=== PATIENT | female | born 1950 | race Caucasian/White ===

== ENCOUNTER 2017-01-26 14:53 | Outpatient (CLI) | payer MEDICARE ==
--- NOTE | 2017-01-30 08:30 | DEXA Report ---
DEXA SCAN: 01/26/2017 CLINICAL INDICATION: Osteoporosis, postmenopausal. TECHNIQUE: Dual energy x-ray absorptiometry (DXA) was performed on a [employer] system. Regions measured are the AP spine, femoral neck, and, if needed, forearm. COMPARISON: None. In accordance with the International Society for Clinical Densitometry (ISCD) guidelines, data from previous exams may be reanalyzed using current recommendations and techniques. This is done to allow a more accurate basis for comparison with the current study. FINDINGS: The data for the lumbar spine is as follows: REGION BMD (g/cm/cm) T-SCORE Z-SCORE L1 1.092 -0.3 1.5 L2 0.896 -2.5 -0.7 L3 1.076 -1.0 0.8 L4 0.949 -2.1 -0.2 TOTAL 1.007 -1.4 0.4 NOTE: All evaluable vertebrae are used for classification. The data for the hip is as follows: REGION BMD (g/cm/cm) T-SCORE Z-SCORE Neck 0.700 -2.4 -0.7 TOTAL 0.789 -1.7 -0.3 NOTE: The femoral neck or total proximal femur, whichever is lowest, is used for classification. IMPRESSION: THE WHO CLASSIFICATION BASED ON THE INTERNATIONAL REFERENCE STANDARD IS OSTEOPENIA. THE FRACTURE RISK IS INCREASED. RECOMMENDATION: Patients with diagnosis of osteoporosis or osteopenia should have regular bone mineral density assessment. For those eligible for Medicare, routine testing is allowed once every 2 years. Testing frequency can be increased for patients who have rapidly progressing disease or for those who are receiving medical therapy to restore bone mass. COMMENT: World Health Organization (WHO) definitions for osteoporosis and osteopenia: NORMAL BMD: T-score at -1.0 or higher, fracture risk is low. OSTEOPENIA BMD: T-score between -1.0 and -2.5, fracture risk is increased. OSTEOPOROSIS BMD: T-score at -2.5 or lower, fracture risk high. National Osteoporosis Foundation recommends: 1. Obtain adequate dietary calcium (at least 1200 mg per day) and vitamin D (400 -800 international units per day). 2. Participate, as appropriate, in regular weightbearing and muscle- strengthening exercise. 3. Avoid tobacco use and reduce alcohol and caffeine intake. 4. For more detailed information see the website at www.NOF.org. MTDD
== END 2017-01-26 14:54 | disposition home or self-care (01) ==
LOC: DI 14:53
PROVIDERS: ATTEND Nurse Practitioner Family
DX: M85.89 Other specified disorders of bone density and structure, multiple sites (principal)
CPT/HCPCS: 77080

== ENCOUNTER 2017-01-26 14:54 | Outpatient (CLI) | payer MEDICARE ==
--- NOTE | 2017-01-27 16:29 | Mammography Report ---
DIGITAL SCREENING RIGHT MAMMOGRAM: 01/26/2017 CLINICAL INDICATION: A 66-year-old with personal history of left breast cancer, status post mastectom y. TECHNIQUE: Right CC and MLO views were obtained. COMPARISON: 12/2015, 05/2015, 09/2014, 02/2014, 05/2012, 12/2010, 12/2009, 11/2008, 11/2007. FINDINGS: The right breast again demonstrates scattered fibroglandular densities. Coarse, typically benign calcifications are present. No suspicious masses, clustered microcalcifications, or regions of architectural distortion are identified. IMPRESSION: BENIGN FINDINGS. RECOMMENDATION: ROUTINE ANNUAL SCREENING UNLESS OTHERWISE CLINICALLY INDICATED. BIRADS CATEGORY 2-BENIGN FINDINGS. STANDARD QUALIFYING STATEMENTS 1. This examination was reviewed with the aid of Computer-Aided Detection (CAD). 2. A negative or benign imaging report should not delay biopsy if clinically suspicious findings are present. Consider surgical consultation if warranted. More than 5% of cancers are not identified by i maging. 3. Dense breasts may obscure an underlying neoplasm. JOB #: [id number] EXT JOB #:
== END 2017-01-26 14:55 | disposition home or self-care (01) ==
LOC: DI 14:54
PROVIDERS: ATTEND Nurse Practitioner Family
DX: Z85.3 Personal history of malignant neoplasm of breast (principal); Z90.12 Acquired absence of left breast and nipple

== ENCOUNTER 2017-02-21 10:11 | Outpatient (CLI) | payer MEDICARE ==
[2017-02-21 18:14] LABS: BUN - BLOOD UREA NITROGEN 13 mg/dL (6-20); CALCIUM 9.3 mg/dL (8.5-10.3); CARBON DIOXIDE - CO2 29 mmol/L (21-32); CHLORIDE 101 mmol/L (101-111); CHOL/HDL RATIO 5.2 (<4.4); CHOLESTEROL 245 mg/dL; CREATININE 0.5 mg/dL (0.4-1.0); GFR - MDRD 123 (>89); GLUCOSE 98 mg/dL (70-100); HDL CHOLESTEROL 47 mg/dL; LDL/HDL RATIO 2.9 (<4.4); SODIUM 139 mmol/L (135-145); TRIGLYCERIDES 298 mg/dL; VLDL CHOLESTEROL 60 mg/dL
== END 2017-02-21 10:12 | disposition home or self-care (01) ==
LOC: LAB.F 10:11
PROVIDERS: ATTEND Nurse Practitioner Family
DX: Z13.1 Encounter for screening for diabetes mellitus (principal)
CPT/HCPCS: 36415; 80048; 80061

== ENCOUNTER 2017-05-11 10:26 | Outpatient (CLI) | payer MEDICARE ==
[2017-05-11 17:45] LABS: BILIRUBIN,TOTAL 0.5 mg/dL (0.2-1.0); TOTAL PROTEIN 7.4 g/dL (6.7-8.2)
[2017-05-11 17:56] LABS: BILIRUBIN,DIRECT < 0.1 mg/dL (0.1-0.5)
== END 2017-05-11 10:27 | disposition home or self-care (01) ==
LOC: LAB.F 10:26
PROVIDERS: ATTEND Nurse Practitioner Family
DX: E78.5 Hyperlipidemia, unspecified (principal)
CPT/HCPCS: 36415; 80076

== ENCOUNTER 2017-08-15 10:31 | Outpatient (CLI) | payer MEDICARE ==
[2017-08-15 18:13] LABS: ALBUMIN 4.5 g/dL (3.2-5.5); ALKALINE PHOSPHATASE 63 IU/L (42-121); ALT ALANINE AMINOTRANSFERASE 31 IU/L (10-60); AST ASPARTATE AMINOTRANSFERASE 27 IU/L (10-42); BILIRUBIN,DIRECT 0.1 mg/dL (0.1-0.5); BILIRUBIN,TOTAL 0.7 mg/dL (0.2-1.0); CHOL/HDL RATIO 3.5 (<4.4); CHOLESTEROL 158 mg/dL; HDL CHOLESTEROL 45 mg/dL; LDL CHOLESTEROL,CALCULATED 89 mg/dL; TOTAL PROTEIN 7.4 g/dL (6.7-8.2); VLDL CHOLESTEROL 24 mg/dL
== END 2017-08-15 10:32 | disposition home or self-care (01) ==
LOC: LAB.F 10:31
PROVIDERS: ATTEND Nurse Practitioner Family
DX: E78.5 Hyperlipidemia, unspecified (principal)
CPT/HCPCS: 36415; 80061; 80076; 83721

== ENCOUNTER 2018-04-12 11:37 | Outpatient (CLI) | payer MEDICARE ==
--- NOTE | 2018-04-16 15:52 | Mammography Report ---
Reason: SCREENING MAMMO, HX OF CA Procedure Date: 04/12/2018 Accession Number: [id number] / [id number] Procedure: BRAIN - Screening Mammo Dig RT CPT Code: FULL RESULT: EXAM: Screening Mammo Dig RT DATE: 04/12/2018 12:17 PM CLINICAL HISTORY: 68-year-old female with history of left breast cancer status post mastectomy. TECHNIQUE: Right CC and MLO views were obtained. COMPARISON: 01/26/2017, 12/10/2015, 05/26/2015, 09/23/2014. FINDINGS: Right breast demonstrates scattered fibroglandular densities. Coarse typically benign calcification is seen in the right breast. No suspicious masses, clustered microcalcifications, or regions of architectural distortion are identified. IMPRESSION: Benign findings RECOMMENDATION: Routine annual screening unless otherwise clinically indicated. BIRADS CATEGORY 2: Benign findings STANDARD QUALIFYING STATEMENTS: 1. This examination was not reviewed with the aid of Computer-Aided Detection (CAD). 2. A negative or benign imaging report should not delay biopsy if clinically suspicious findings are present. Consider surgical consultation if warrented. More than 5% of cancers are not identified by imaging. 3. Dense breasts may obscure an underlying neoplasm. 4. This examination was reviewed without the aid of 3D breast imaging (tomosynthesis).
== END 2018-04-12 11:38 | disposition home or self-care (01) ==
LOC: DI 11:37
DX: Z12.31 Encounter for screening mammogram for malignant neoplasm of breast (principal); Z85.3 Personal history of malignant neoplasm of breast; Z90.12 Acquired absence of left breast and nipple

== ENCOUNTER 2018-09-03 19:24 | Emergency (ER) | payer MEDICARE ==
--- NOTE | 2018-09-03 19:45 | ED Physician Documentation ---
PD HPI BACK PAIN - Stated complaint Stated Complaint: BK PX - Chief complaint Chief Complaint: Back Pain - History obtained from History obtained from: Patient - History of Present Illness Timing - onset: Other (This is a 68-year-old woman who had a conservatively managed bladder infection a few weeks ago. Over the last 3 days she has had atraumatic right lower back pain that is worse with bending over. No current urinary symptoms, hematuria or dysuria. No fevers.) Review of Systems Constitutional: denies: Fever, Chills GI: denies: Abdominal Pain, Nausea, Vomiting : denies: Dysuria, Frequency, Hesitancy PD PAST MEDICAL HISTORY - Past Medical History Past Medical History: Yes Cardiovascular: Hypertension, High cholesterol Respiratory: None Neuro: None Endocrine/Autoimmune: None GI: None FORESTRY ENGINEER: None : None HEENT: None Psych: None Musculoskeletal: None Derm: None - Past Surgical History Past Surgical History: Yes General: Appendectomy /FORESTRY ENGINEER: Mastectomy HEENT: Tonsil/Adenoidectomy - Present Medications Home Medications: Ambulatory Orders Medication Instructions Recorded Confirmed Aspirin 975 mg PO HS 02/14/13 02/14/13 Calcium [Calcio [place]] 500 mg PO DAILY 02/14/13 02/14/13 Cyanocobalamin (Vitamin B-12) 250 mcg PO 02/14/13 02/14/13 [B-12] Gluc HCl/Csa/Collagen/Hyalur A 1 each PO DAILY 02/14/13 02/14/13 [Glucosamine Chondroitin Cap] [place]-3 Fatty Acids [Fish Oil] 500 mg PO DAILY 02/14/13 02/14/13 Vit D3-Vit K/[place]ber[place]/Hops 1 each PO 02/14/13 02/14/13 [Ostera Tablet] Vitamin E [Formula E] 400 unit PO DAILY 02/14/13 11/07/15 Cyclobenzaprine [Flexeril] 10 mg PO TID PRN #10 tablet 09/03/18 Lidocaine Patch 5% [Lidoderm Patch] 1 patch TOP DAILY PRN #10 patch 09/03/18 Simvastatin 20 mg PO DAILY 09/03/18 09/03/18 - Allergies Allergies/Adverse Reactions: Allergies Allergy/AdvReac Type Severity Reaction Status Date / Time oxycodone HCl * Allergy Unknown Itching Verified 09/03/18 19:33 [From OxyContin] - Social History Does the pt smoke?: No Smoking Status: Never smoker Does the pt drink ETOH?: Yes Does the pt have substance abuse?: No - Immunizations Immunizations are current?: Yes - POLST Patient has POLST: No PD ED PE NORMAL - Vitals Vital signs reviewed: Yes - General General: Alert and oriented X 3, No acute distress - Abdomen Abdomen: Soft, Non tender - Back Back: No spinal TTP, Other (Tender to the left paralumbar musculature more than the CVA) - Extremities Extremities: Other (The patient has equal and normal Achilles and patellar reflexes bilaterally. Normal sensation in all areas of the legs. Patient denies saddle anesthesia. Normal strength in flexion-extension at the ankles, knees, and flexion of the hips.) - Neuro Neuro: Alert and oriented X 3, Normal speech Results - Vitals Vitals: Vital Signs - 24 hr 09/03/18 19:29 Temperature 36.4 C L Heart Rate 63 Respiratory 15 Rate Blood Pressure 190/70 H O2 Saturation 99 Oxygen O2 Source Room air - Labs Labs: Laboratory Tests 09/03/18 Unknown Urine Color YELLOW Urine Clarity CLEAR Urine pH 7.0 Ur Specific [place] 1.010 Urine Protein NEGATIVE Urine Glucose (UA) NEGATIVE Urine Ketones NEGATIVE Urine Occult Blood NEGATIVE Urine Nitrite NEGATIVE Urine Bilirubin NEGATIVE Urine Urobilinogen 0.2 (NORMAL) Ur Leukocyte Esterase NEGATIVE Ur Microscopic Review NOT INDICATED Urine Culture Comments NOT INDICATED PD MEDICAL DECISION MAKING - ED course ED course: This is a 68-year-old woman with what seems very consistent with musculoskeletal left lower back pain. There is specific concern about kidney infection but this is not present. Departure - Departure Disposition: 01 Home, Self Care Clinical Impression: Back pain Qualifiers: Back pain location: low back pain Chronicity: acute Back pain laterality: left Sciatica presence: without sciatica Qualified Code(s): M54.5 - Low back pain Condition: Good Record reviewed to determine appropriate education?: Yes Instructions: ED Neck Back Pain General Prescriptions: Cyclobenzaprine [Flexeril] 10 mg PO TID PRN #10 tablet PRN Reason: Spasms Lidocaine Patch 5% [Lidoderm Patch] 1 patch TOP DAILY PRN #10 patch PRN Reason: pain Comments: Call your doctor to arrange a follow-up appointment, make the next available ap pointment. In the interim, return anytime if worse or if new symptoms develop. Your blood pressure was elevated today on check into the emergency department. This does not mean that you have hypertension, it is a common phenomenon to come to the emergency department and have elevated blood pressure. I recommend that you see your primary care physician within the week to have it rechecked when you are feeling better.
[2018-09-03 19:51] LABS: BILIRUBIN,URINE NEGATIVE (NEGATIVE); GLUCOSE, URINE (UA) NEGATIVE (NEGATIVE); KETONES,URINE (UA) NEGATIVE (NEGATIVE); LEUKOCYTE ESTERASE, URINE NEGATIVE (NEGATIVE); NITRITE,URINE NEGATIVE (NEGATIVE); OCCULT BLOOD,URINE NEGATIVE (NEGATIVE); PROTEIN,URINE NEGATIVE (NEGATIVE); UROBILINOGEN,URINE 0.2 (NORMAL) E.U./dL (NORMAL)
[2018-09-03 19:52] LABS: CLARITY,URINE CLEAR (CLEAR)
[2018-09-03] MEDS ORDERED: LIDOCAINE PATCH 5% TOP STA (19:59)
[2018-09-03] MEDS ORDERED: CYCLOBENZAPRINE 10 MG TABLET PO STA (19:59)
[2018-09-03 20:13] VITALS: BP 167/77
== END 2018-09-03 20:13 | disposition home or self-care (01) ==
LOC: ED 19:24
DX: M54.5 Low back pain (principal); I10 Essential (primary) hypertension; Z79.82 Long term (current) use of aspirin
CPT/HCPCS: 81003; 99283; A9270; 81001; 87086

== ENCOUNTER 2018-09-06 06:56 | Day surgery (SDC) | payer MEDICARE ==
[2018-09-06] MEDS ORDERED: fentaNYL 250 MCG/5 ML VIAL IVP ONE (07:15)
[2018-09-06] MEDS ORDERED: MIDAZOLAM 2 MG/2 ML VIAL IVP ONE (07:15)
[2018-09-06] MEDS ORDERED: LACTATED RINGERS 1,000 ML IV ONE (07:23)
[2018-09-06 09:22] VITALS: BP 122/78
== END 2018-09-06 06:57 | disposition home or self-care (01) ==
LOC: SDS 06:56
PROVIDERS: ATTEND Internal Medicine Gastroenterology
PROC: 0DBP8ZX Excision of Rectum, Via Natural or Artificial Opening Endoscopic, Diagnostic (ICD-10-PCS; principal; 2018-09-06 08:00)
DX: K62.9 Disease of anus and rectum, unspecified (principal); R19.5 Other fecal abnormalities; K59.09 Other constipation; K64.4 Residual hemorrhoidal skin tags; K64.8 Other hemorrhoids; K57.30 Diverticulosis of large intestine without perforation or abscess without bleeding; Z83.71 Family history of colonic polyps; Z85.3 Personal history of malignant neoplasm of breast; Z90.12 Acquired absence of left breast and nipple; Z87.891 Personal history of nicotine dependence
CPT/HCPCS: 45380; J3010; J7120

== ENCOUNTER 2019-02-07 15:14 | Outpatient (CLI) | payer MEDICARE ==
--- NOTE | 2019-02-08 11:18 | DEXA Report ---
Reason: OSTEOPOROSIS Procedure Date: 02/07/2019 Accession Number: [id number] / [id number] Procedure: DEX - Dexa Spine and/or Hip CPT Code: FULL RESULT: EXAM: Dexa Spine and/or Hip DATE: 02/07/2019 3:35 PM CLINICAL HISTORY: OSTEOPOROSIS TECHNIQUE: Dual energy x-ray absorptiometry (DXA) was performed on a [employer] System. Regions measured are the AP Spine, femoral neck, and if needed forearm. COMPARISON: 01/26/2017. In accordance with the International Society for Clinical Densitometry (ISCD) guidelines, data from previous exams may be reanalyzed using current recommendations and techniques. This is done to allow a more accurate basis for comparison with the current study. FINDINGS: The data for the lumbar spine is as follows: BMD (g/cm/cm) T-SCORE Z-SCORE REGION L1 excluded L2 1.028 -1.4 0.5 L3 1.007 -1.6 0.4 L4 0.882 -2.6 -0.7 TOTAL 0.963 -2.0 0.0 NOTE: All evaluable vertebrae are used for classification The data for the hip is as follows: BMD (g/cm/cm) T-SCORE Z-SCORE REGION Neck 0.670 -2.6 -0.8 TOTAL 0.770 -1.9 -0.2 NOTE: The femoral neck or total proximal femur, whichever is lowest, is used for classification. DXA RESULTS SUMMARY: Spine SCAN DATE AGE BMD CHANGE VS CHANGE VS PREVIOUS PREVIOUS % [birth year][age]07[birth year]2019 [age] 0.963 -0.021 -2.1 01[age][birth year]/2017 [age] 0[age]984 * Denotes significant change at the 95% confidence level. Denotes dissimilar scan types or analysis methods. DXA RESULTS SUMMARY: Hip SCAN DATE AGE BMD CHANGE VS CHANGE VS PREVIOUS PREVIOUS % [birth year]07[birth year]2019 [age] 0.770 -0.019 -2.4 01[birth year]2017 [age] 0[age]789 * Denotes significant change at the 95% confidence level. Denotes dissimilar scan types or analysis methods. IMPRESSION: THE WHO CLASSIFICATION BASED ON THE INTERNATIONAL REFERENCE STANDARD IS OSTEOPOROSIS. THE FRACTURE RISK IS HIGH. RECOMMENDATION: Patients with diagnosis of osteoporosis or osteopenia should have regular bone mineral density assessment. For those eligible for Medicare, routine testing is allowed once every 2 years. Testing frequency can be increased for patients who have rapidly progressing disease or for those who are receiving medical therapy to restore bone mass. COMMENT: World Health Organization (WHO) definitions for osteoporosis and osteopenia: NORMAL BMD: T-score at -1.0 or higher, fracture risk is low OSTEOPENIA BMD: T-score between -1.0 and -2.5, fracture risk is increased. OSTEOPOROSIS BMD: T-score at -2.5 or lower, fracture risk is high. National Osteoporosis Foundation recommends: 1. Obtain adequate dietary calcium (at least 1200 mg per day) and vitamin D (400-800 international units per day). 2. Participate, as appropriate, in regular weightbearing and muscle-strengthening exercise. 3. Avoid tobacco use and reduce alcohol and caffeine intake. 4. For more detailed information see the website at www.NOF.org.
== END 2019-02-07 15:15 | disposition home or self-care (01) ==
LOC: DI 15:14
PROVIDERS: ATTEND Registered Nurse
DX: M81.0 Age-related osteoporosis without current pathological fracture (principal)
CPT/HCPCS: 77080

== ENCOUNTER 2019-02-11 | Outpatient (CLI) | payer MEDICARE | END 2019-02-11 10:18 | disposition home or self-care (01) ==

== ENCOUNTER 2019-04-23 10:27 | Outpatient (CLI) | payer MEDICARE ==
--- NOTE | 2019-04-24 08:36 | Mammography Report ---
Reason: SCREENING MAMMO Procedure Date: 04/23/2019 Accession Number: [id number] / [id number] Procedure: MGS - Screening Mammo Dig RT CPT Code: FULL RESULT: EXAM: Screening Mammo Dig RT DATE: 04/23/2019 10:37 AM CLINICAL HISTORY: Screening encounter. Personal history of breast cancer status post left mastectomy in 2000. TECHNIQUE: (R) - Right CC and MLO views were obtained. COMPARISON: 04/12/2018 through 12/28/2009. PARENCHYMAL PATTERN: (A) - The breast(s) demonstrate(s) scattered fibroglandular densities. FINDINGS: There are coarse typically benign calcifications. There are no suspicious masses, calcifications, or areas of distortion. IMPRESSION: Benign findings. BI-RADS category 2. RECOMMENDATION: (ANNUAL) - Recommend routine annual screening mammography. BI-RADS CATEGORY: (2) - Benign Findings. STANDARD QUALIFYING STATEMENTS: 1. This examination was reviewed with the aid of Computer-Aided Detection (CAD). 2. A negative or benign imaging report should not preclude biopsy if clinically suspicious findings are present. 3. Dense breasts may obscure an underlying neoplasm. 4. This examination was reviewed without the aid of 3D breast imaging (tomosynthesis).
== END 2019-04-23 10:28 | disposition home or self-care (01) ==
LOC: DI.S 10:27
DX: Z12.31 Encounter for screening mammogram for malignant neoplasm of breast (principal); Z85.3 Personal history of malignant neoplasm of breast; Z90.12 Acquired absence of left breast and nipple

== ENCOUNTER 2020-05-01 15:31 | Outpatient (CLI) | payer MEDICARE ==
--- NOTE | 2020-05-04 16:27 | Mammography Report ---
UNILATERAL RIGHT DIGITAL SCREENING MAMMOGRAM 3D/2D: 05/01/2020 CLINICAL: Routine screening. Personal history of left breast cancer. Comparison is made to exams dated: 04/23/2019 mammogram, 04/12/2018 mammogram, 04/28/2017 mammogram, 12/10/2015 mammogram, 05/26/2015 mammogram, and 09/23/2014 mammogram - [facility]. Th ere are scattered fibroglandular elements in right breast. There is a benign calcification in the right breast. No significant masses, calcifications, or other findings are seen in the breast. There has been no significant interval change. IMPRESSION: BENIGN There is no mammographic evidence of malignancy. A 1 year screening mammogram is recommended. This exam was interpreted at Station ID: [id number]. NOTE: For mammograms, a report in lay terms will be sent to the patient. Approximately 15% of breast malignancies will not be visualized mammographically. In the management of a palpable breast mass, a negative mammogram must not discourage biopsy of a clinically suspicious lesion. Electronically Signed By: Lindsay delgadillo/kimber:05/01/2020 16:47:03 ACR BI-RADS Category 2: Benign Finding(s) 3342F PARENCHYMAL PATTERN: (A) - The breast(s) demonstrate(s) scattered fibroglandular densities. BI-RADS CATEGORY: (2) - 2 RECOMMENDATION: (ANNUAL) - Recommend routine annual screening mammography. [id number] 1 year screening LATERALITY: (B)
== END 2020-05-01 15:32 | disposition home or self-care (01) ==
LOC: DI 15:31
DX: Z12.31 Encounter for screening mammogram for malignant neoplasm of breast (principal); Z85.3 Personal history of malignant neoplasm of breast
CPT/HCPCS: 77063

== ENCOUNTER 2021-04-26 12:58 | Outpatient (CLI) | payer MEDICARE ==
--- NOTE | 2021-04-26 13:48 | DEXA Report ---
PROCEDURE: Dexa Spine and/or Hip INDICATIONS: OSTEOPOROSIS TECHNIQUE: Dual energy x-ray absorptiometry (DXA) was performed on a [employer] System. Regions measur ed are the AP Spine, femoral neck, and if needed forearm. COMPARISON: 02/07/2019. FINDINGS: Lumbar Spine: Bone Mineral Density 0.921 g/cm/cm,T score -2.3. There is interval full-thickness 4% decrease in t otal lumbar spine bone mineral density since previous study. Left Hip: Bone Mineral Density synovial 0.741 g/cm/cm,T score -2.1. There is interval 3.8% decrease in left to ivana hip without evidence of the. Left Femoral Neck: Bone Mineral Density 0.691 g/cm/cm, T score -2.5. (T score greater or equal to -1.0: NORMAL) (T score from -1.1 to -2.4: OSTEOPENIA) (T score less than or equal to -2.5 to: OSTEOPOROSIS) Impression: Osteoporosis. Patients with diagnosis of osteoporosis or osteopenia should have regular bone mineral density assess ment. For those eligible for Medicare, routine testing is allowed once every 2 years. Testing frequ ency can be increased for patients who have rapidly progressing disease or for those who are receivin g medical therapy to restore bone mass. Reviewed by: Aaron Sam MD on 04/26/2021 1:46 PM PDT Approved by: Aaron Sam MD on 04/26/2021 1:46 PM PDT Station ID: [id number]
== END 2021-04-26 12:59 | disposition home or self-care (01) ==
LOC: DI 12:58
PROVIDERS: ATTEND Registered Nurse
DX: M81.0 Age-related osteoporosis without current pathological fracture (principal)

== ENCOUNTER 2021-04-26 12:58 | Outpatient (CLI) | payer MEDICARE ==
--- NOTE | 2021-04-27 10:24 | Mammography Report ---
UNILATERAL RIGHT DIGITAL SCREENING MAMMOGRAM 3D/2D: 04/26/2021 CLINICAL: Routine screening. Personal history of left breast cancer. Comparison is made to exams dated: 05/01/2020 mammogram, 04/23/2019 mammogram, 04/12/2018 mammogram, 04/28/2017 mammogram, and 12/10/2015 mammogram - [facility]. There are scattered fib roglandular elements in right breast. There is a benign calcification in the right breast. No significant masses, calcifications, or other findings are seen in the breast. There has been no significant interval change. IMPRESSION: BENIGN There is no mammographic evidence of malignancy. A 1 year screening mammogram is recommended. Future imaging is recommended as follows: 05/02/2021 screening mammogram. This exam was interpreted at Station ID: [id number]. NOTE: For mammograms, a report in lay terms will be sent to the patient. Approximately 15% of breast malignancies will not be visualized mammographically. In the management of a palpable breast mass, a negative mammogram must not discourage biopsy of a clinically suspicious lesion. Electronically Signed By: Aram Dang M.D. [facility] [place]rad:04/26/2021 15:06:27 ACR BI-RADS Category 2: Benign Finding(s) 3342F PARENCHYMAL PATTERN: (A) - The breast(s) demonstrate(s) scattered fibroglandular densities. BI-RADS CATEGORY: (2) - 2 RECOMMENDATION: (ANNUAL) - Recommend routine annual screening mammography. [id number] 1 year screening LATERALITY: (B)
== END 2021-04-26 12:59 | disposition home or self-care (01) ==
LOC: DI 12:58
PROVIDERS: ATTEND Registered Nurse
DX: Z12.31 Encounter for screening mammogram for malignant neoplasm of breast (principal); Z85.3 Personal history of malignant neoplasm of breast

== ENCOUNTER 2022-04-21 08:55 | Outpatient (CLI) | payer MEDICARE ==
[2022-04-21 14:53] LABS: BASOPHILS # (AUTO) 0.1 10^3/uL (0.0-0.1); BASOPHILS % (AUTO) 1.2 %; EOSINOPHILS # (AUTO) 0.3 10^3/uL (0.0-0.7); EOSINOPHILS % (AUTO) 5.5 %; HGB - HEMOGLOBIN 14.9 g/dL (12.0-16.0); LYMPHOCYTES # (AUTO) 1.9 10^3/uL (1.5-3.5); MEAN CORPUSCULAR HGB CONC 33.9 g/dL (32.0-36.0); MEAN CORPUSCULAR VOLUME 88.5 fL (81.0-99.0); MEAN PLATELET VOLUME 9.5 fL (7.9-10.8); MONOCYTES # (AUTO) 0.5 10^3/uL (0.0-1.0); MONOCYTES % (AUTO) 10.3 %; NEUTROPHILS # (AUTO) 2.3 10^3/uL (1.5-6.6); NEUTROPHILS % (AUTO) 45.6 %; PLT - PLATELET COUNT 255 10^3/uL (130-450); RED BLOOD COUNT 4.97 10^6/uL (4.20-5.40); RED CELL DISTRIBUTION WIDTH 12.1 % (12.0-15.0); WHITE BLOOD COUNT 5.1 x10^3/uL (4.8-10.8)
[2022-04-21 15:22] LABS: THYROID STIMULATING HORMONE 2.39 uIU/mL (0.34-5.60)
[2022-04-21 15:36] LABS: ALBUMIN 4.5 g/dL (3.2-5.5); ALBUMIN/GLOBULIN RATIO 1.5 (1.0-2.2); ALKALINE PHOSPHATASE 60 IU/L (42-121); ALT ALANINE AMINOTRANSFERASE 26 IU/L (10-60); AST ASPARTATE AMINOTRANSFERASE 23 IU/L (10-42); BILIRUBIN,TOTAL 0.4 mg/dL (0.2-1.0); BUN - BLOOD UREA NITROGEN 11 mg/dL (6-20); CHOL/HDL RATIO 3.5 (<4.4); CHOLESTEROL 183 mg/dL; CREATININE 0.5 mg/dL (0.4-1.0); GFR - MDRD 121 (>89); HDL CHOLESTEROL 53 mg/dL; LDL CHOLESTEROL,CALCULATED 78 mg/dL; LDL/HDL RATIO 1.5 (<4.4); TOTAL PROTEIN 7.5 g/dL (6.7-8.2); TRIGLYCERIDES 260 mg/dL; VLDL CHOLESTEROL 52 mg/dL
[2022-04-21 15:52] LABS: CALCIUM 9.6 mg/dL (8.5-10.3); CARBON DIOXIDE - CO2 29 mmol/L (21-32); CHLORIDE 104 mmol/L (101-111); GLUCOSE 91 mg/dL (70-100); POTASSIUM 4.1 mmol/L (3.5-5.0); SODIUM 139 mmol/L (135-145)
== END 2022-04-21 08:56 | disposition home or self-care (01) ==
LOC: LAB.S 08:55
PROVIDERS: ATTEND Registered Nurse
DX: Z00.00 Encounter for general adult medical examination without abnormal findings (principal); Z79.899 Other long term (current) drug therapy; E78.1 Pure hyperglyceridemia; E78.5 Hyperlipidemia, unspecified; Z13.0 Encounter for screening for diseases of the blood and blood-forming organs and certain disorders involving the immune mechanism; Z13.228 Encounter for screening for other metabolic disorders; Z13.29 Encounter for screening for other suspected endocrine disorder
CPT/HCPCS: 36415; 80053; 80061; 83721; 84443; 85025

== ENCOUNTER 2022-04-25 15:07 | Outpatient (CLI) | payer MEDICARE ==
--- NOTE | 2022-04-26 12:11 | Mammography Report ---
UNILATERAL RIGHT DIGITAL SCREENING MAMMOGRAM 3D/2D: 04/25/2022 CLINICAL: Routine screening.Personal history of left breast cancer. Comparison is made to exams dated: 04/26/2021 mammogram, 05/01/2020 mammogram, and 04/23/[address] [facility]. There are scattered areas of fibroglandular density in the right breast (category b / 25%-50% glandul ar tissue). There is a benign calcification in the right breast. No significant masses, calcifications, or other findings are seen in the breast. There has been no significant interval change. IMPRESSION: BENIGN There is no mammographic evidence of malignancy. A 1 year screening mammogram is recommended. This exam was interpreted at Station ID: [id number]. NOTE: For mammograms, a report in lay terms will be sent to the patient. Approximately 15% of breast malignancies will not be visualized mammographically. In the management of a palpable breast mass, a negative mammogram must not discourage biopsy of a clinically suspicious lesion. Electronically Signed By: Marilou ceja/kimber:04/26/2022 09:41:45 ACR BI-RADS Category 2: Benign Finding(s) 3342F PARENCHYMAL PATTERN: (A) - The breast(s) demonstrate(s) scattered fibroglandular densities. BI-RADS CATEGORY: (2) - 2 RECOMMENDATION: (ANNUAL) - Recommend routine annual screening mammography. [id number] 1 year screening LATERALITY: (B)
== END 2022-04-25 15:08 | disposition home or self-care (01) ==
LOC: DI.S 15:07
DX: Z12.31 Encounter for screening mammogram for malignant neoplasm of breast (principal); Z85.3 Personal history of malignant neoplasm of breast

== ENCOUNTER 2022-06-27 14:10 | Outpatient (CLI) | payer MEDICARE ==
--- NOTE | 2022-06-27 16:40 | DEXA Report ---
PROCEDURE: Dexa Spine and/or Hip INDICATIONS: OSTEOPOROSIS TECHNIQUE: Dual energy x-ray absorptiometry (DXA) was performed on a [employer] System. Regions measur ed are the AP Spine, femoral neck, and if needed forearm. COMPARISON: DEXA 04/26/2021 and 01/26/2017. FINDINGS: Lumbar Spine: Bone Mineral Density 0.981 g/cm/cm,T score -1.7, osteopenia. No statistically significant change w hen compared to the exam from 01/26/2017. Left Femoral Neck: Bone Mineral Density 0.708 g/cm/cm, T score -2.4, osteopenia. Left Hip: Bone Mineral Density 0.753 g/cm/cm,T score -2.0, osteopenia. No statistically significant change whe n compared to the exam from 04/26/2021. (T score greater or equal to -1.0: NORMAL) (T score from -1.1 to -2.4: OSTEOPENIA) (T score less than or equal to -2.5 to: OSTEOPOROSIS) Impression: Bone mineral density within the osteopenia range at the lumbar spine, left hip, and left proximal fem ur. Patients with diagnosis of osteoporosis or osteopenia should have regular bone mineral density assess ment. For those eligible for Medicare, routine testing is allowed once every 2 years. Testing frequ ency can be increased for patients who have rapidly progressing disease or for those who are receivin g medical therapy to restore bone mass. Reviewed by: Carlos Eduardo Baeza MD on 06/27/2022 4:39 PM PST Approved by: Carlos Eduardo Baeza MD on 06/27/2022 4:39 PM PST Station ID: [id number]
== END 2022-06-27 14:11 | disposition home or self-care (01) ==
LOC: DI 14:10
PROVIDERS: ATTEND Registered Nurse
DX: M85.89 Other specified disorders of bone density and structure, multiple sites (principal)

== ENCOUNTER 2023-05-10 09:50 | Outpatient (CLI) | payer MEDICARE ==
--- NOTE | 2023-05-11 16:06 | Mammography Report ---
UNILATERAL RIGHT DIGITAL SCREENING MAMMOGRAM 3D/2D: 05/10/2023 CLINICAL: Routine screening. Personal history of left breast cancer. Comparison is made to exams dated: 04/25/2022 mammogram, 04/26/2021 mammogram, 05/01/2020 mammogram, 04/23/2019 mammogram, and 04/12/2018 mammogram - [facility]. There are scattered areas of fibroglandular density in the right breast (category b / 25%-50% glandul ar tissue). No significant masses, calcifications, or other findings are seen in the breast. IMPRESSION: NEGATIVE There is no mammographic evidence of malignancy. A 1 year screening mammogram is recommended. This exam was interpreted at Station ID: [id number]. NOTE: For mammograms, a report in lay terms will be sent to the patient. Approximately 15% of breast malignancies will not be visualized mammographically. In the management of a palpable breast mass, a negative mammogram must not discourage biopsy of a clinically suspicious lesion. Electronically Signed By: Jenny Grossman M.D., PH.D eb/penrad:05/11/2023 00:31:52 letter sent: No_Letter ACR BI-RADS Category 1: Negative 3341F PARENCHYMAL PATTERN: (A) - The breast(s) demonstrate(s) scattered fibroglandular densities. BI-RADS CATEGORY: (1) - 1 Mammogram [id number] 1 year screening LATERALITY: (B)
== END 2023-05-10 09:51 | disposition home or self-care (01) ==
LOC: DI.S 09:50
DX: Z12.31 Encounter for screening mammogram for malignant neoplasm of breast (principal); Z85.3 Personal history of malignant neoplasm of breast; R92.321 Mammographic fibroglandular density, right breast

== ENCOUNTER 2023-06-23 08:27 | Outpatient (CLI) | payer MEDICARE ==
[2023-06-23 14:46] LABS: BASOPHILS # (AUTO) 0.1 10^3/uL (0.0-0.1); BASOPHILS % (AUTO) 1.2 %; EOSINOPHILS # (AUTO) 0.3 10^3/uL (0.0-0.7); EOSINOPHILS % (AUTO) 6.9 %; HCT - HEMATOCRIT 43.6 % (37.0-47.0); HGB - HEMOGLOBIN 14.6 g/dL (12.0-16.0); LYMPHOCYTES # (AUTO) 1.8 10^3/uL (1.5-3.5); LYMPHOCYTES % (AUTO) 36.6 %; MEAN CORPUSCULAR HEMOGLOBIN 29.9 pg (27.0-31.0); MEAN CORPUSCULAR HGB CONC 33.5 g/dL (32.0-36.0); MEAN CORPUSCULAR VOLUME 89.3 fL (81.0-99.0); MEAN PLATELET VOLUME 10.1 fL (7.9-10.8); MONOCYTES # (AUTO) 0.5 10^3/uL (0.0-1.0); NEUTROPHILS # (AUTO) 2.2 10^3/uL (1.5-6.6); NEUTROPHILS % (AUTO) 44.1 %; PLT - PLATELET COUNT 229 10^3/uL (130-450); RED BLOOD COUNT 4.88 10^6/uL (4.20-5.40); WHITE BLOOD COUNT 4.9 x10^3/uL (4.8-10.8)
[2023-06-23 14:50] LABS: ALBUMIN 4.4 g/dL (3.2-5.5); ALBUMIN/GLOBULIN RATIO 1.8 (1.0-2.2); ALKALINE PHOSPHATASE 60 IU/L (42-121); ALT ALANINE AMINOTRANSFERASE 29 IU/L (10-60); AST ASPARTATE AMINOTRANSFERASE 26 IU/L (10-42); BILIRUBIN,TOTAL 0.5 mg/dL (0.2-1.0); BUN - BLOOD UREA NITROGEN 10 mg/dL (6-20); CALCIUM 9.5 mg/dL (8.5-10.3); CARBON DIOXIDE - CO2 29 mmol/L (21-32); CHLORIDE 107 mmol/L (101-111); CHOL/HDL RATIO 3.7 (<4.4); CHOLESTEROL 168 mg/dL; CREATININE 0.5 mg/dL (0.6-1.3); GFR - MDRD 121 (>89); GLUCOSE 94 mg/dL (74-104); HDL CHOLESTEROL 45 mg/dL; LDL CHOLESTEROL,CALCULATED 58 mg/dL; LDL/HDL RATIO 1.3 (<4.4); POTASSIUM 4.4 mmol/L (3.5-4.5); SODIUM 141 mmol/L (135-145); TOTAL PROTEIN 6.9 g/dL (6.4-8.9); TRIGLYCERIDES 325 mg/dL (48-352); VLDL CHOLESTEROL 65 mg/dL
[2023-06-23 14:57] LABS: THYROID STIMULATING HORMONE 2.55 uIU/mL (0.34-5.60)
== END 2023-06-23 08:28 | disposition home or self-care (01) ==
LOC: LAB.S 08:27
PROVIDERS: ATTEND Registered Nurse
DX: E78.1 Pure hyperglyceridemia (principal); Z79.899 Other long term (current) drug therapy; Z13.29 Encounter for screening for other suspected endocrine disorder
CPT/HCPCS: 36415; 80053; 80061; 83721; 84443; 85025